=== PATIENT | male | born 1975 | race Caucasian/White ===

== ENCOUNTER 2024-08-29 11:47 | Emergency (ER) | payer OTHER ==
[~2024-08-29] VITALS: Ht 160 cm; Wt 99.8 kg
[2024-08-29] MEDS ORDERED: LIDOCAINE 2%-EPI 1:100,000 30 ML VIAL ONE (12:17)
[2024-08-29] MEDS: TDAP [DIPH/PERTUSSIS/TET] 0.5 ML VIAL IM ONE (12:30)
[2024-08-29] MEDS ORDERED: LIDOCAINE 1% INJ 50 ML MDV IJ ONE (12:34)
[2024-08-29] MEDS ORDERED: BACI/NEOM/POLY B OINT PKT 1 UDPKT PACKET ONE (12:35)
[2024-08-29] MEDS ORDERED: TDAP [DIPH/PERTUSSIS/TET] 0.5 ML VIAL IM ONE (12:35)
[2024-08-29] MEDS: BACI/NEOM/POLY B OINT PKT 1 UDPKT PACKET TP ONE (12:56)
[2024-08-29] MEDS: LIDOCAINE 1% INJ 50 ML MDV IJ ONE (12:56)
[2024-08-29] MEDS ORDERED: LIDOCAINE 1%-EPI 1:100,000 20 ML VIAL ONE (13:27)
[2024-08-29] MEDS ORDERED: ONDANSETRON HCL/PF 4 MG/2 ML VIAL ONE (14:33)
[2024-08-29] MEDS ORDERED: MORPHINE SULFATE INJ 4 MG/ML DISP.SYRIN ONE (14:34)
[2024-08-29] MEDS: IV NS 0.9% 1,000 ML BAG IV ONE (14:50)
[2024-08-29] MEDS: ONDANSETRON HCL/PF 4 MG/2 ML VIAL IV ONE (14:51)
[2024-08-29] MEDS: MORPHINE SULFATE INJ 2 MG/ML DISP.SYRIN IV ONE (14:51)
[2024-08-29] MEDS: LEVETIRACETAM (500MG) 1,000 MG in IV NS 0.9% 90 ML IV STA (15:14)
[2024-08-29 15:29] LABS: BASOPHILS % (AUTO) 0.2 % (0.0-2.0); EOSINOPHILS % (AUTO) 0.1 % (0.0-6.0); HEMATOCRIT 43 % (39-51); HEMOGLOBIN 14.4 g/dL (13.5-17.5); LYMPHOCYTES # (AUTO) 2.4 K/uL (0.8-4.8); LYMPHOCYTES % (AUTO) 11.5 % (20.0-44.0); MEAN CORPUSCULAR HEMOGLOBIN 31 PG (26.0-33.0); MEAN CORPUSCULAR HGB CONC 34 g/dl (31.0-36.0); MEAN CORPUSCULAR VOLUME 92 fL (80-96); MONOCYTES # (AUTO) 1.3 K/uL (0.1-1.30); MONOCYTES % (AUTO) 6.2 % (2.0-12.0); NEUTROPHILS # (AUTO) 16.9 K/uL (1.8-8.9); PLATELET COUNT (AUTO) 142 K/uL (150-450); RED BLOOD CELL COUNT(AUTO) 4.63 MIL/uL (4.5-6.0); RED CELL DISTRIBUTION WIDTH 13.2 % (11.5-15.0); WHITE BLOOD COUNT (AUTO) 20.6 K/uL (4.3-11.0)
[2024-08-29 15:38] LABS: CREATININE 0.8 mg/dL (0.6-1.3); POTASSIUM 3.4 mmol/L (3.5-5.1)
[2024-08-29 15:42] LABS: INR 1.04 (0.91-1.10); PARTIAL THROMBOPLASTIN TIME 22.9 SEC (24.3-34.3)
[2024-08-29 16:55] VITALS: BP 133/84; TEMP 98.5; O2SAT 100
== END 2024-08-29 17:13 | disposition short-term general hospital (02) ==
LOC: ER 11:50
DX: S06.6XAA Traumatic subarachnoid hemorrhage with loss of consciousness status unknown, initial encounter (principal); S06.5XAA Traumatic subdural hemorrhage with loss of consciousness status unknown, initial encounter; S42.001A Fracture of unspecified part of right clavicle, initial encounter for closed fracture; S01.01XA Laceration without foreign body of scalp, initial encounter; I49.8 Other specified cardiac arrhythmias; R11.2 Nausea with vomiting, unspecified; R41.3 Other amnesia; W11.XXXA Fall on and from ladder, initial encounter; Y93.89 Activity, other specified; Y92.89 Other specified places as the place of occurrence of the external cause; Y99.8 Other external cause status
CPT/HCPCS: 12002; 29105; 36415; 70450; 71045; 72125; 73030; 80048; 85025; 85730; 90471; 90715; 93005; 96365; 96375; 99291; A6403; J1953; J2270; J2405; J3490; J7030